=== PATIENT | female | born 1955 | race African-American/Black ===

== ENCOUNTER 2021-01-19 08:00 | Inpatient (IN) | payer OTHER ==
[2021-01-12 14:04] VITALS: BMI 34.4
[2021-01-26] MEDS ORDERED: TRANEXAMIC ACID 1000 MG/10 ML VIAL ONE (07:25)
[2021-01-26] MEDS ORDERED: EPINEPHrine/PF 1 MG/1 ML (1:1,000) AMPULE ONE (07:25)
[2021-01-26] MEDS ORDERED: MIDAZOLAM HCL 2 MG/2 ML SINGLE DOSE VIAL ONE (07:31)
[2021-01-26] MEDS ORDERED: ROPIVACAINE HCL 0.5% 30ML VIAL ONE (07:31)
[2021-01-26] MEDS ORDERED: ROCURONIUM BROMIDE 50 MG/5 ML SYRINGE ONE (08:06)
[2021-01-26] MEDS ORDERED: PROPOFOL 20 ML ONE (08:06)
[2021-01-26] MEDS ORDERED: VANCOMYCIN 1,000 MG VIAL (RESTRICTED TO ID ONLY) ONE (10:29)
[2021-01-26] MEDS ORDERED: HYDROmorphone HCL CARPU-JECT 1 MG/1 ML DISP.SYRIN IVPUSH PRN (11:56)
[2021-01-26] MEDS ORDERED: oxyCODONE HCL 5 MG TABLET PO PRN (11:56)
[2021-01-26] MEDS ORDERED: ONDANSETRON 4 MG/2 ML VIAL IVPUSH PRN ×2 (11:56→12:14)
[2021-01-26] MEDS ORDERED: LACTATED RINGERS SOLUTION 1,000 ML IV SCH ×2 (12:00→12:15)
[2021-01-26] MEDS ORDERED: MAG HYDROX/AL HYDROX/SIMETH 30 ML UNIT-DOSE CUP PO PRN (12:14)
[2021-01-26] MEDS ORDERED: ACETAMINOPHEN INJECTION 100 ML IVPB ONE (12:21)
[2021-01-26] MEDS: ACETAMINOPHEN 1000 MG/100 ML VIAL (NON FORMULARY) IVPB ONE ×2 (12:24→15:01)
[2021-01-26] MEDS: ACETAMINOPHEN 500 MG TABLET (FP) PO SCH ×2 (12:24→19:59)
[2021-01-26] MEDS ORDERED: LOCK ITEM NR ONE (15:11)
[2021-01-26] MEDS ORDERED: CEFAZOLIN 2 GM in DEXTROSE 5%-WATER - 50 ML IVPB SCH ×2 (16:10→16:45)
[2021-01-26] MEDS: CEFAZOLIN 2 GM/D5W 2 GM/50 ML ML IVPB SCH (17:57)
[2021-01-26] MEDS ORDERED: VANCOMYCIN 1 GM in D5W (PRE-DOCKED) 1,000 MG/250 ML IVPB ONE (20:10)
[2021-01-26] MEDS: ATORVASTATIN CA 20 MG TABLET (FP) PO SCH (21:46)
[2021-01-26] MEDS: SENNOSIDES/DOCUSATE COMBO (SENNA PLUS) TABLET (UD) PO SCH (21:47)
[2021-01-26] MEDS: oxyCODONE HCL 10 MG SUSTAINED ACTING TABLET PO SCH (21:47)
[2021-01-26] MEDS ORDERED: lamoTRIgine 100 MG TABLET PO SCH (22:00)
[2021-01-26] MEDS: oxyCODONE HCL 5 MG TABLET PO PRN (23:05)
[2021-01-27] MEDS ORDERED: traMADol HCL 50 MG TABLET PO ONE (00:22)
[2021-01-27] MEDS: CEFAZOLIN 2 GM/D5W 2 GM/50 ML ML IVPB SCH (01:43)
[2021-01-27] MEDS: ACETAMINOPHEN 500 MG TABLET (FP) PO SCH ×4 (01:43→19:35)
[2021-01-27] MEDS: oxyCODONE HCL 5 MG TABLET PO PRN ×2 (03:07→06:49)
[2021-01-27] MEDS ORDERED: PT OWN MED DRAWER 7, Y5N ONE ×2 (07:12→09:07)
[2021-01-27] MEDS ORDERED: oxyCODONE HCL 5 MG TABLET PO PRN ×2 (07:35)
[2021-01-27] MEDS ORDERED: morphine SULFATE 4 MG/ML VIAL SQ PRN (07:35)
[2021-01-27 08:14] LABS: CREATININE 0.6 mg/dl (0.55-1.3)
[2021-01-27] MEDS ORDERED: POTASSIUM CHLORIDE TABS 20 MEQ TABLET.ER (FP) PO ONE (08:30)
[2021-01-27] MEDS: HYDROCHLOROTHIAZIDE 25 MG TABLET (FP) PO SCH (09:19)
[2021-01-27] MEDS: SENNOSIDES/DOCUSATE COMBO (SENNA PLUS) TABLET (UD) PO SCH ×2 (09:19→21:16)
[2021-01-27] MEDS: ASPIRIN 325 MG TABLET PO SCH (09:19)
[2021-01-27] MEDS: MULTIVITAMINS (DAILY MVI) TABLET (FP) PO SCH (09:19)
[2021-01-27] MEDS: LOSARTAN POTASSIUM 50 MG TABLET PO SCH (09:19)
[2021-01-27] MEDS: PANTOPRAZOLE 40 MG TABLET PO SCH (09:19)
[2021-01-27] MEDS: LAMOTRIGINE 200 MG PO SCH (09:20)
[2021-01-27] MEDS: oxyCODONE HCL 10 MG SUSTAINED ACTING TABLET PO SCH ×2 (09:21→22:35)
[2021-01-27 10:02] LABS: HEMATOCRIT 35.2 % (32.4-45.2); HEMOGLOBIN 11.6 GM/dL (10.7-15.3); MCH 27.2 pg (25.7-33.7); MEAN CELL VOLUME 82.4 fl (80-96); MEAN PLT VOLUME 7.5 fl (7.5-11.1); PLATELET COUNT 273 10^3/uL (134-434); RBC 4.27 M/mm3 (3.60-5.2); RDW 13.8 % (11.6-15.6); WHITE BLOOD COUNT 7.2 K/mm3 (4.0-10.0)
[2021-01-27] MEDS: ATORVASTATIN CA 20 MG TABLET (FP) PO SCH (22:35)
[2021-01-28] MEDS: ACETAMINOPHEN 500 MG TABLET (FP) PO SCH ×3 (02:39→14:25)
[2021-01-28] MEDS: PANTOPRAZOLE 40 MG TABLET PO SCH (09:38)
[2021-01-28] MEDS: HYDROCHLOROTHIAZIDE 25 MG TABLET (FP) PO SCH (09:39)
[2021-01-28] MEDS: LOSARTAN POTASSIUM 50 MG TABLET PO SCH (09:39)
[2021-01-28] MEDS: MULTIVITAMINS (DAILY MVI) TABLET (FP) PO SCH (09:39)
[2021-01-28] MEDS: ASPIRIN 325 MG TABLET PO SCH (09:39)
[2021-01-28] MEDS: LAMOTRIGINE 200 MG PO SCH (09:39)
[2021-01-28] MEDS: SENNOSIDES/DOCUSATE COMBO (SENNA PLUS) TABLET (UD) PO SCH (09:39)
[2021-01-28] MEDS: oxyCODONE HCL 10 MG SUSTAINED ACTING TABLET PO SCH (09:39)
[2021-01-28] MEDS ORDERED: PT OWN MED DRAWER 7, Y5N ONE (14:58)
[2021-01-28 15:04] VITALS: BP 126/63; PULSE 88; TEMP 98.5
== END 2021-01-28 14:55 | disposition home health service (06) | DRG 483 ==
LOC: FM/S 01-26 06:10
PROVIDERS: ADMIT Orthopaedic Surgery; ATTEND Nurse Practitioner Acute Care
PROC: 0LS40ZZ Reposition Left Upper Arm Tendon, Open Approach (ICD-10-PCS; 2021-01-26)
PROC: 0RRK0JZ Replacement of Left Shoulder Joint with Synthetic Substitute, Open Approach (ICD-10-PCS; principal; 2021-01-26 08:47)
DX: M19.012 Primary osteoarthritis, left shoulder (principal); I10 Essential (primary) hypertension; E78.5 Hyperlipidemia, unspecified; G40.909 Epilepsy, unspecified, not intractable, without status epilepticus; G43.909 Migraine, unspecified, not intractable, without status migrainosus; M77.9 Enthesopathy, unspecified; M25.512 Pain in left shoulder; M75.22 Bicipital tendinitis, left shoulder
CPT/HCPCS: 36415; 73030-TC-LT-FY; 80048; 85027; 88304-TC; 88311-TC; 94010; 94760; 97010-GP; 97116-GP; 97161-GP; J0131